=== PATIENT | female | born 1945 | race Caucasian/White ===

== ENCOUNTER → 2018-08-22 | Outpatient (CLI) | payer MEDICARE ==
--- NOTE | 2018-08-22 12:51 | REP ---
Chest two views HISTORY: Shortness of breath Comparison: None Patchy density is present in the left lower lobe consistent with atelectasis or infiltrate. Small bilateral pleural effusions are present. The heart is normal in size. Calcified lymph nodes are present in the mediastinum. The pulmonary vasculature is normal in appearance. The bony structure is intact. The patient is status post gastric pull through procedure. IMPRESSION: 1. Left lower lobe atelectasis or infiltrate. 2. Small bilateral pleural effusions. Electronically Signed by Julio Friend MD 08/22/2018 12:43 P
== END ==
LOC: M SMT 11:40
PROVIDERS: ATTEND Internal Medicine Cardiovascular Disease
DX: R91.8 Other nonspecific abnormal finding of lung field (principal); R06.02 Shortness of breath; I50.9 Heart failure, unspecified; J90 Pleural effusion, not elsewhere classified

== ENCOUNTER 2019-06-20 13:10 | Inpatient (IN) | payer MEDICARE, OTHER ==
[~2019-06-20] VITALS: Ht 157.5 cm; Wt 59.9 kg
[2019-06-20] MEDS ORDERED: methylPREDNISolone INJ 125 MG/2 ML VIAL (J2930) IV ONE (13:45)
--- NOTE | 2019-06-20 13:47 | REP ---
Single view chest: 06/20/2019. Indication: Dyspnea. Comparison: 08/22/2018. Findings: Slightly increased opacity within the right lower lobe is noted. Diminished left lower lobe opacities are noted. There is blunting of the costophrenic angles bilaterally. There is no pneumothorax. Calcified lymph nodes, sequelae of gastric pull-through including medial right lower lobe/mediastinal density and additional chronic interstitial findings are unchanged. Impression: Small right lower lobe pneumonia is not excluded. Bilateral pleural effusions. Electronically Signed by Boris Pardo DO 06/20/2019 01:39 P
[2019-06-20 14:00] LABS: VENOUS BASE EXCESS 0.1 (-2.0-2.0); VENOUS HCO3 25.4 MEQ/L (23.0-27.0); VENOUS PARTIAL PRESSURE CO2 44.3 mmHg (38.0-50.0); VENOUS PARTIAL PRESSURE O2 33.3 mmHg (30.0-50.0); VENOUS PH 7.377 UNITS (7.330-7.430); VENOUS STANDARD HCO3 23.8 MEQ/L; VENOUS TOTAL CO2 26.8 MEQ/L (24.0-28.0)
[2019-06-20 14:05] LABS: BASO % 0.2 % (0.0-1.0); EOS # 0.1 10^3/uL (0.0-0.5); EOS % 0.9 % (0.0-3.0); HEMATOCRIT 35.8 % (36.0-47.0); HEMOGLOBIN 11.5 g/dl (12.0-15.5); LYMPH # 0.5 10^3/uL (1.5-5.0); LYMPH % 5.6 % (24.0-44.0); MEAN CORPUSCULAR HEMOGLOBIN 31.9 pg (27.0-33.0); MEAN CORPUSCULAR HGB CONC 32.1 g/dl (32.0-36.5); MEAN CORPUSCULAR VOLUME 99.4 fl (80.0-96.0); MONO # 0.8 10^3/uL (0.0-0.8); MONO % 9.3 % (0.0-5.0); NEUTROPHILS # 7.5 10^3/uL (1.5-8.5); NEUTROPHILS % 83.1 % (36.0-66.0); PLATELET COUNT, AUTOMATED 249 10^3/uL (150-450); WHITE BLOOD COUNT 9.1 10^3/uL (4.0-10.0)
[2019-06-20] MEDS ORDERED: PROAAER10 INH (14:15)
[2019-06-20] MEDS ORDERED: B COTAB3 PO (14:15)
[2019-06-20] MEDS ORDERED: OPSU1TAB PO (14:15)
[2019-06-20] MEDS ORDERED: B-122500 PO (14:15)
[2019-06-20] MEDS ORDERED: TREL1AER INH (14:15)
[2019-06-20] MEDS ORDERED: IRON15CH PO (14:15)
[2019-06-20] MEDS ORDERED: D3 U5000 PO (14:15)
[2019-06-20] MEDS ORDERED: FURO20TA2 PO (14:15)
[2019-06-20] MEDS ORDERED: SPIR-10 PO (14:15)
[2019-06-20] MEDS ORDERED: GNP8.6TA PO (14:15)
[2019-06-20] MEDS ORDERED: LEVO75TA4 PO (14:15)
[2019-06-20] MEDS ORDERED: ELIQ5TAB PO (14:15)
[2019-06-20] MEDS ORDERED: PANT40TA3 PO (14:15)
[2019-06-20 14:25] LABS: INR 1.68; PROTHROMBIN TIME 19.5 SECONDS (11.8-14.0)
[2019-06-20 14:38] LABS: ALBUMIN 3.1 GM/DL (3.2-5.2); BILIRUBIN,DIRECT 0.1 MG/DL (0.0-0.2); BILIRUBIN,TOTAL 0.5 MG/DL (0.2-1.0); CALCIUM LEVEL 9.5 MG/DL (8.8-10.2); CK-MB VALUE MASS 5.3 NG/ML (<3.6); CREATININE FOR GFR 1.79 MG/DL (0.55-1.30); GLOMERULAR FILTRATION RATE 29.4 (>39); MB/CK RELATIVE INDEX 3.01 (< OR =4); POTASSIUM SERUM 3.7 MEQ/L (3.5-5.1); THYROID STIMULATING HORMONE 4.72 uIU/ML (0.358-3.740); TOTAL PROTEIN 6.7 GM/DL (6.4-8.2); TROPONIN I 0.03 NG/ML (< 0.10)
[2019-06-20] MEDS ORDERED: LevoFLOXacin IV 750 MG in IV 1 EA IV ONE (14:45)
[2019-06-20] MEDS ORDERED: IRON65TA2 PO (15:39)
[2019-06-20] MEDS ORDERED: ALBU83IN INH (15:42)
[2019-06-20] MEDS ORDERED: IPRA3SP NARES (15:42)
[2019-06-20] MEDS ORDERED: METO10TA2 PO (15:42)
[2019-06-20] MEDS ORDERED: AMOX500C PO (15:42)
[2019-06-20] MEDS ORDERED: AZITHROMYCIN INJ 500 MG, VIAL MATE ADAPTER 1 EACH in D5W 250 ML IV ONE (16:45)
[2019-06-20] MEDS ORDERED: cefTRIAXone SOD 1 GM in D5W MINI-BAG PLUS 50 ML IV SCH (17:00)
[2019-06-20] MEDS ORDERED: AZITHROMYCIN INJ 500 MG, VIAL MATE ADAPTER 1 EACH in D5W 250 ML IV SCH (17:00)
--- NOTE | 2019-06-20 17:31 | REPVR ---
PROCEDURE INFORMATION: Exam: CT Chest Without Contrast Exam date and time: 06/20/2019 5:02 PM Age: 74 years old Clinical history: Cough and shortness of breath; Additional info: SOB, cough, ? pna TECHNIQUE: Imaging protocol: Computed tomography of the chest without contrast. 3D rendering: MIP reconstructed images were created and reviewed. Radiation optimization: All CT scans at this facility use at least one of these dose optimization techniques: automated exposure control; mA and/or kV adjustment per patient size (includes targeted exams where dose is matched to clinical indication); or iterative reconstruction. COMPARISON: CR PORTABLE CHEST X-RAY 06/20/2019 1:24 PM FINDINGS: Lungs: Probable centrilobular emphysema with pulmonary hyperinflation. Pleural space: There is a moderate right pleural effusion with adjacent presumed compressive atelectasis in the right lower lobe. The right lower lobe is also compressed by the gastric pull-through. There is probable loculated fluid in the right major fissure. There is also a moderate left pleural effusion. Heart: No cardiomegaly or significant pericardial effusion. Mediastinum: There appears to be a gastric pull-through/samira-esophagus with surgical clips in the upper abdomen and posterior mediastinum. Aorta: There is no aneurysmal dilatation of thoracic aorta. Atherosclerotic calcification is apparent. Lymph nodes: Calcified lymph nodes are seen in the mediastinum and left hilum which may be due to old granulomatous disease. Liver: Several hepatic calcifications are likely due to old granulomatous disease. Spleen: Multiple splenic calcifications likely due to old granulomatous disease. Adrenals: The left adrenal gland is prominent. Bones/joints: Skeletal degeneration. Soft tissues: Unremarkable. IMPRESSION: 1. There are moderate bilateral pleural effusions which may be due to congestive heart failure. 2. There is probable compressive atelectasis in both lower lobes however further pathology is not excluded since they're not well assessed. 3. Presumed gastric pull through which is not well assessed on this noncontrast examination. 4. Probable granulomatous disease. 5. Probable centrilobular emphysema. Electronically signed by: Kaylin Clancy On 06/20/2019 17:31:02 PM
[2019-06-20] MEDS: METOCLOPRAMIDE 10 MG TAB PO SCH ×2 (17:33→22:17)
[2019-06-20] MEDS: FUROSEMIDE 40 MG/4 ML VIAL (J1940) IV SCH (17:34)
[2019-06-20] MEDS ORDERED: PIPERACILLIN/TAZOBACTAM SOD 3.375 GM in D5W MINI-BAG PLUS 50 ML IV SCH (17:45)
--- NOTE | 2019-06-20 18:05 | HPEPDOC ---
[facility] Medical History & Physical Date of Admission Jun 20, 2019 Date of Service: Jun 20, 2019 Attending Physician: DIOR WALL MD History and Physical CHIEF COMPLAINT: Shortness of breath and cough HISTORY OF PRESENT ILLNESS: 74-year-old female with past medical history of atrial fibrillation (on Eliquis), pulmonary hypertension, oxygen dependent, hypothyroidism, esophageal cancer status post chemoradiation and surgical resection in 2004, presents with worsening shortness of breath and cough. Her symptoms started a few days ago with worsening dyspnea, followed by cough initially productive of sputum, couple of episodes of diarrhea. She denies any sick contacts, reports decreasing her Lasix dose over the past few days based on her physician's recommendations, noted a 1 pound weight gain over the past 24 hours. Otherwise, she has no complaints at this time, denies any chest pain, sandi sea, vomiting or abdominal pain. In the ED she was found to have questionable right lower lobe pneumonia, follow-up CT showing bilateral pleural effusions. 10 point review of system is negative except for above PAST MEDICAL HISTORY: 1. Atrial fibrillation. 2. Pulmonary Hypertension. 3. Hypothyroidism. 4. Esophageal cancer. PAST SURGICAL HISTORY: 1. Cholecystectomy. 2. Esophageal resection. SOCIAL HISTORY: Previous smoker, 2 packs per day for 40 years, quit many years ago Denies drug and alcohol this time. Denies drug use FAMILY HISTORY: Mother with heart disease ALLERGIES: Please see below. HOME MEDICATIONS: Please see below. PHYSICAL EXAMINATION: VITAL SIGNS: Please see below. GENERAL: No distress HEENT: Normocephalic, atraumatic, moist mucous membranes NECK: Supple CARDIOVASCULAR EXAMINATION: S1, S2, no murmurs RESPIRATORY EXAMINATION: Diminished in the bases bilaterally, scattered rhonchi appreciated, no wheezing ABDOMINAL EXAMINATION: Soft, nontender, nondistended, positive bowel sounds EXTREMITIES: Range of motion intact SKIN: No rash NEUROLOGICAL EXAMINATION: Alert and oriented 3, no focal deficits PSYCHIATRIC EXAMINATION: Calm and cooperative LABORATORY DATA: See below. IMAGING: CT with bilateral pleural effusions MICROBIOLOGY: Please see below. ASSESSMENT: 74-year-old female with past medical history of pulmonary hypertension, CHF, atrial fibrillation, esophageal cancer status post chemoradiation and surgery, presents with worsening dyspnea and cough suggestive of CHF exacerbation. PLAN: 1. Acute on chronic CHF exacerbation. Recently decreased her outpatient Lasix dose, clinically volume overloaded, CT with bilateral pleural effusions, Lasix 40 mg IV twice a day. TTE pending. Monitor I's and O's, weight daily 2. Right lower lobe infiltrate. Possible right lower lobe infiltrate, given stomach pull-through in to the thoracic cavity, concern for aspiration, empiric Zosyn. Respiratory viral panel negative, pro-calcitonin pending, blood cultures pending. 3. Elevated creatinine. No recent creatinine for comparison, a small acute kidney injury versus chronic kidney disease, questionable cardiorenal syndrome, will diurese and monitor renal function. 4. Atrial fibrillation. Continue liquids, decrease dose to 2.5 mg twice a day given patient's weight and creatinine greater than 1.5. 5. Pulmonary hypertension. Supportive care, supplemental oxygen as needed to maintain O2 sats of 90%, TTE pending, diuresing. 6. Hypothyroidism. Continue levothyroxine 7. Esophageal cancer. Diagnosed in 2004, status post chemotherapy therapy, radiation and surgical resection with stomach pull-through to the thoracic cavity. DVT prophylaxis: On Eliquis GI prophylaxis: Home Protonix Vital Signs Vital Signs Date Time Temp Pulse Resp B/P (MAP) Pulse Ox O2 Delivery O2 Flow Rate FiO2 06/20/19 17:25 96 22 87 Nasal Cannula 4.0 06/20/19 17:09 168/71 (103) 06/20/19 13:11 98.0 Laboratory Data Labs 24H Laboratory Tests 2 06/20/19 13:38: Immature Granulocyte % (Auto) 0.9, Neutrophils (%) (Auto) 83.1H, Lymphocytes (%) (Auto) 5.6L, Monocytes (%) (Auto) 9.3H, Eosinophils (%) (Auto) 0.9, Basophils (%) (Auto) 0.2, Neutrophils # (Auto) 7.5, Lymphocytes # (Auto) 0.5L, Monocytes # (Auto) 0.8, Eosinophils # (Auto) 0.1, Basophils # (Auto) 0.0, Nucleated Red Blood Cells % (auto) 0.0, Prothrombin Time 19.5H, Prothromb Time International Ratio 1.68, Blood Gas Bicarbonate Standard 23.8, Venous Blood pH 7.377, Venous Blood Partial Pressure CO2 44.3, Venous Blood Partial Pressure O2 33.3, Venous Blood Total Carbon Dioxide 26.8, Venous Blood HCO3 25.4, Venous Blood Oxygen Saturation 59.0L, Venous Blood Base Excess 0.1, Anion Gap 11, Glomerular Filtration Rate 29.4L, Lactic Acid Level 1.9, Calcium Level 9.5, Total Bilirubin 0.5, Direct Bilirubin 0.1, Aspartate Amino Transf (AST/SGOT) 32, Alanine Aminotransferase (ALT/SGPT) 37, Alkaline Phosphatase 68, Total Creatine Kinase 176, Creatine Kinase MB 5.3H, Creatine Kinase MB Relative Index 3.01, Troponin I 0.03, TT-Gis-L-Type Natriuretic Peptide 29028E, Total Protein 6.7, Albumin 3.1L, Albumin/Globulin Ratio 0.86L, Thyroid Stimulating Hormone (TSH) 4.720H CBC/BMP Laboratory Tests 06/20/19 13:38 Microbiology Microbiology 06/20/19 Respiratory Virus Panel (PCR) ([facility]) - Final, Complete 06/20/19 Blood Culture, Received Pending 06/20/19 Blood Culture, Received Pending Home Medications Scheduled Amoxicillin (Amoxicillin) 500 Mg Capsule, 500 MG PO TID FOR 10 DAYS, STARTED 06/18 FOR TOOTH ABCESS Apixaban (Eliquis) 5 Mg Tablet, 5 MG PO BID Cholecalciferol (Vitamin D3) (Vitamin D3) 5,000 Unit Capsule, 5,000 UNIT PO DAILY Cyanocobalamin (Vitamin B-12) (Vitamin B12) 2,500 Mcg Tablet, 1,000 TAB PO DAILY Ferrous Sulfate (Iron) 325 Mg Tablet, 325 MG PO QWEEK MONDAYS Fluticasone/Umeclidin/Vilanter (Trelegy Ellipta 100-62.5-25) 1 Each Blst.w.dev, 1 PUFF INH DAILY Furosemide (Furosemide) 20 Mg Tablet, 60 MG PO DAILY Ipratropium Blount (Ipratropium Blount) 30 Ml [place], 2 SPRAY NARES BID Levothyroxine Sodium (Levothyroxine Sodium) 75 Mcg Tablet, 75 MCG PO DAILY Macitentan (Opsumit) 10 Mg Tablet, 10 MG PO DAILY Metoclopramide HCl (Metoclopramide HCl) 10 Mg Tablet, 10 MG PO TID Pantoprazole Sodium (Pantoprazole Sodium) 40 Mg Tablet.dr, 40 MG PO DAILY Sennosides (Senna Lax) 8.6 Mg Tablet, 2 TAB PO QHS Spironolactone (Spironolactone) 25 Mg Tablet, 25 MG PO DAILY Vitamin B Complex (Vitamin B Complex) 1 Each Tablet, 1 TAB PO DAILY Scheduled PRN Albuterol Sulf (Albuterol Sulfate) 2.5 Mg/3 Ml Vial.neb, 2.5 MG INH TID PRN for SHORTNESS OF BREATH Albuterol Sulfate (Proair Hfa) 8.5 Gm Hfa.aer.ad, 2 PUFF INH Q4H PRN for SOB/WHEEZING Allergies Coded Allergies: No Known Allergies (Unverified , 06/20/19) A-FIB/CHADSVASC A-FIB History Current/History of A-Fib/PAF?: Yes Current PO Anticoag Therapy: Yes DIOR WALL MD Jun 20, 2019 18:05
[2019-06-20] MEDS ORDERED: PIPERACILLIN/TAZOBACTAM SOD 3.375 GM in D5W MINI-BAG PLUS 50 ML IV ONE (18:15)
[2019-06-20] MEDS ORDERED: APIXABAN 5 MG TAB (ELIQUIS) PO SCH (21:00)
[2019-06-20] MEDS: IPRATROPIUM 0.03% NASAL SPRAY 30 ML (ATROVENT) SCH (21:00)
[2019-06-20 21:10] VITALS: BP 99/58
[2019-06-20] MEDS: SENNA 8.6 MG TAB (SENOKOT) PO SCH (22:17)
[2019-06-20] MEDS: APIXABAN 2.5 MG TAB (ELIQUIS) PO SCH (22:17)
[2019-06-20] MEDS: PIPERACILLIN/TAZOBACTAM SOD 2.25 GM in D5W MINI-BAG PLUS 50 ML IV SCH (23:26)
[2019-06-21] MEDS: PIPERACILLIN/TAZOBACTAM SOD 2.25 GM in D5W MINI-BAG PLUS 50 ML IV SCH ×4 (04:28→22:19)
[2019-06-21] MEDS: LEVOTHYROXINE 75MCG TABLET (0.075MG) PO SCH (05:51)
[2019-06-21 06:00] VITALS: BP 95/61
[2019-06-21 06:32] LABS: HEMATOCRIT 31.5 % (36.0-47.0); HEMOGLOBIN 10.3 g/dl (12.0-15.5); MEAN CORPUSCULAR HEMOGLOBIN 31.6 pg (27.0-33.0); MEAN CORPUSCULAR HGB CONC 32.7 g/dl (32.0-36.5); MEAN CORPUSCULAR VOLUME 96.6 fl (80.0-96.0); PLATELET COUNT, AUTOMATED 246 10^3/uL (150-450); RED BLOOD COUNT 3.26 10^6/uL (4.00-5.40); WHITE BLOOD COUNT 6.6 10^3/uL (4.0-10.0)
[2019-06-21 06:54] LABS: ALBUMIN 2.7 GM/DL (3.2-5.2); BILIRUBIN,TOTAL 0.4 MG/DL (0.2-1.0); CALCIUM LEVEL 8.7 MG/DL (8.8-10.2); CREATININE FOR GFR 1.77 MG/DL (0.55-1.30); GLOMERULAR FILTRATION RATE 29.8 (>39); MAGNESIUM LEVEL 1.9 MG/DL (1.8-2.4); TOTAL PROTEIN 6.5 GM/DL (6.4-8.2)
[2019-06-21] MEDS: ALBUTEROL SULFATE 2.5 MG/0.5 ML INH NEB SOLN INH PRN ×2 (07:11→14:46)
[2019-06-21 07:12] VITALS: O2SAT 95
[2019-06-21] MEDS: METOCLOPRAMIDE 10 MG TAB PO SCH ×3 (08:27→22:18)
[2019-06-21] MEDS: PANTOPRAZOLE 40MG TAB (PROTONIX) PO SCH (08:27)
[2019-06-21] MEDS: CYANOCOBALAMIN 500 MCG TAB PO SCH (08:27)
[2019-06-21] MEDS: APIXABAN 2.5 MG TAB (ELIQUIS) PO SCH ×2 (08:28→22:18)
[2019-06-21] MEDS: SPIRONOLACTONE 25 MG TAB PO SCH (08:28)
[2019-06-21] MEDS: IPRATROPIUM 0.03% NASAL SPRAY 30 ML (ATROVENT) SCH ×2 (08:28→22:18)
[2019-06-21] MEDS: FUROSEMIDE 40 MG/4 ML VIAL (J1940) IV SCH ×2 (09:00→17:08)
--- NOTE | 2019-06-21 10:57 | REP ---
RENAL ULTRASOUND: Real-time sonographic evaluation of the kidneys performed. Kidneys are normal in size and echotexture, right kidney measuring 9.8 x 4.6 x 3.6 cm and the left kidney 9.3 x 5.3 x 4.1 cm. There is no hydronephrosis bilaterally. No renal mass is seen. Ureteral jets are not seen in the urinary bladder with Doppler color evaluation. There is right pleural fluid incidentally noted. IMPRESSION: Essentially negative renal ultrasound with no hydronephrosis. Electronically Signed by Randall Awan MD 06/21/2019 11:47 A
[2019-06-21] MEDS: OPSUMIT 10 MG PO SCH (11:11)
[2019-06-21] MEDS: TRELEGY ELLIPTA INH SCH (11:19)
[2019-06-21 14:00] VITALS: BP 98/58
--- NOTE | 2019-06-21 14:59 | ECGEPIP ---
[facility] - ED Test Date: 2019-06-20 Pat Name: PRASANNA BHATTI Department: Room: - Gender: Female [employer] Forms: SAIDA : 1945 Requested By: Nguyen Soliz Order Number: [id number] Reading MD: Javid Atwood Measurements Intervals [place] Rate: 99 P: 80 NC: 209 QRS: 96 QRSD: 92 T: 29 QT: 346 QTc: 444 Interpretive Statements SINUS RHYTHM LEFT ATRIAL ENLARGEMENT BORDERLINE RIGHT AXIS DEVIATION INCOMPLETE RIGHT BUNDLE BRANCH BLOCK NO PRIORS FOR COMPARISON Electronically Signed on 06-21-2019 14:59:29 EST by Javid Atwood
--- NOTE | 2019-06-21 17:37 | IPNPDOC ---
Date Seen The patient was seen on 06/21/19. Progress Note HISTORY OF PRESENT ILLNESS: 74-year-old female with past medical history of atrial fibrillation (on Eliquis), pulmonary hypertension, oxygen dependent, hypothyroidism, esophageal cancer status post chemoradiation and surgical resection in 2004, presents with worsening shortness of breath and cough. Her symptoms started a few days ago with worsening dyspnea, followed by cough initially productive of sputum, couple of episodes of diarrhea. She denies any sick contacts, reports decreasing her Lasix dose over the past few days based on her physician's recommendations, noted a 1 pound weight gain over the past 24 hours. Otherwise, she has no complaints at this time, denies any chest pain, na usea, vomiting or abdominal pain. In the ED she was found to have questionable right lower lobe pneumonia, follow-up CT showing bilateral pleural effusions. 06/21/2019 Patient without any complaints in the morning, no issues overnight. She reports no changes to her health from yesterday, continues to have cough and mild dyspnea, remains on nasal cannula at 4 L at this time. 10 point review of system is negative except for above ALLERGIES: Please see below. HOME MEDICATIONS: Please see below. PHYSICAL EXAMINATION: VITAL SIGNS: Please see below. GENERAL: No distress HEENT: Normocephalic, atraumatic, moist mucous membranes NECK: Supple CARDIOVASCULAR EXAMINATION: S1, S2, no murmurs RESPIRATORY EXAMINATION: Diminished in the bases bilaterally, scattered rhonchi appreciated, no wheezing ABDOMINAL EXAMINATION: Soft, nontender, nondistended, positive bowel sounds EXTREMITIES: Range of motion intact SKIN: No rash NEUROLOGICAL EXAMINATION: Alert and oriented 3, no focal deficits PSYCHIATRIC EXAMINATION: Calm and cooperative LABORATORY DATA: See below. IMAGING: CT with bilateral pleural effusions MICROBIOLOGY: Please see below. ASSESSMENT: 74-year-old female with past medical history of pulmonary hypertension, CHF, atrial fibrillation, esophageal cancer status post chemoradiation and surgery, presents with worsening dyspnea and cough suggestive of CHF exacerbation. PLAN: 1. Acute on chronic CHF exacerbation. CT with bilateral pleural effusions, Lasix 40 mg IV twice a day. TTE pending. Monitor I's and O's, weight daily 2. Right lower lobe infiltrate. Possible right lower lobe infiltrate, given stomach pull-through in to the thoracic cavity, concern for aspiration, empiric Zosyn. Respiratory viral panel negative, blood cultures pending, swallow eval pending . Pro-calcitonin not significantly elevated. 3. Elevated creatinine. No recent creatinine for comparison, possible cardiorenal syndrome, renal ultrasound without hydronephrosis, will monitor with further diuresis. 4. Atrial fibrillation. Continue liquids, decrease dose to 2.5 mg twice a day given patient's weight and creatinine greater than 1.5. 5. Pulmonary hypertension. Continue home Opsumit 6. Hypothyroidism. Continue levothyroxine 7. Esophageal cancer. Diagnosed in 2004, status post chemotherapy therapy, radiation and surgical resection with stomach pull-through to the thoracic cavity. DVT prophylaxis: On Eliquis GI prophylaxis: Home Protonix VS, I&O, 24H, Fishbone Vital Signs/I&O Vital Signs Date Time Temp Pulse Resp B/P (MAP) Pulse Ox O2 Delivery O2 Flow Rate FiO2 06/21/19 14:47 92 06/21/19 14:00 98.6 18 98/58 (71) 92 High Flow Cannula 3.0 06/20/19 21:10 31 I&O- Last 24 Hours up to 6 AM 06/21/19 05:59 Intake Total 555 ml Output Total 400 ml Balance 155 ml Laboratory Data 24H LABS Laboratory Tests 2 06/21/19 06:13: Nucleated Red Blood Cells % (auto) 0.0, Anion Gap 9, Glomerular Filtration Rate 29.8L, Calcium Level 8.7L, Magnesium Level 1.9, Total Bilirubin 0.4, Aspartate Amino Transf (AST/SGOT) 24, Alanine Aminotransferase (ALT/SGPT) 31, Alkaline Phosphatase 54, Total Protein 6.5, Albumin 2.7L, Albumin/Globulin Ratio 0.71L CBC/BMP Laboratory Tests 06/21/19 06:13 Microbiology Microbiology 06/20/19 Gram Stain - Final, Resulted 06/20/19 Sputum Culture, Resulted Pending 06/20/19 Respiratory Virus Panel (PCR) ([facility]) - Final, Complete 06/20/19 Blood Culture - Preliminary, Resulted No growth after 24 hours . All specim... 06/20/19 Blood Culture - Preliminary, Resulted No growth after 24 hours . All specim... DIOR WALL MD Jun 21, 2019 17:37
[2019-06-21 22:00] VITALS: BP 97/56
[2019-06-21] MEDS: SENNA 8.6 MG TAB (SENOKOT) PO SCH (22:18)
[2019-06-22] MEDS: PIPERACILLIN/TAZOBACTAM SOD 2.25 GM in D5W MINI-BAG PLUS 50 ML IV SCH ×4 (05:22→22:30)
[2019-06-22] MEDS: LEVOTHYROXINE 75MCG TABLET (0.075MG) PO SCH (05:22)
[2019-06-22 06:00] VITALS: BP 96/57
[2019-06-22 06:17] LABS: HEMATOCRIT 30.3 % (36.0-47.0); HEMOGLOBIN 9.7 g/dl (12.0-15.5); MEAN CORPUSCULAR HEMOGLOBIN 31.7 pg (27.0-33.0); PLATELET COUNT, AUTOMATED 254 10^3/uL (150-450); RED BLOOD COUNT 3.06 10^6/uL (4.00-5.40); WHITE BLOOD COUNT 7.6 10^3/uL (4.0-10.0)
[2019-06-22 06:37] LABS: CALCIUM LEVEL 8.7 MG/DL (8.8-10.2); CREATININE FOR GFR 1.69 MG/DL (0.55-1.30); GLOMERULAR FILTRATION RATE 31.4 (>39); MAGNESIUM LEVEL 1.9 MG/DL (1.8-2.4); POTASSIUM SERUM 3.6 MEQ/L (3.5-5.1)
[2019-06-22] MEDS: FUROSEMIDE 40 MG/4 ML VIAL (J1940) IV SCH ×2 (08:02→16:59)
[2019-06-22] MEDS: SPIRONOLACTONE 25 MG TAB PO SCH (08:02)
[2019-06-22] MEDS: METOCLOPRAMIDE 10 MG TAB PO SCH ×3 (08:02→20:52)
[2019-06-22] MEDS: APIXABAN 2.5 MG TAB (ELIQUIS) PO SCH ×2 (08:02→20:52)
[2019-06-22] MEDS: CYANOCOBALAMIN 500 MCG TAB PO SCH (08:02)
[2019-06-22] MEDS: OPSUMIT 10 MG PO SCH (08:03)
[2019-06-22] MEDS: PANTOPRAZOLE 40MG TAB (PROTONIX) PO SCH (08:03)
[2019-06-22] MEDS: TRELEGY ELLIPTA INH SCH (08:09)
[2019-06-22] MEDS: ALBUTEROL SULFATE 2.5 MG/0.5 ML INH NEB SOLN INH PRN ×2 (08:09→22:06)
[2019-06-22] MEDS: IPRATROPIUM 0.03% NASAL SPRAY 30 ML (ATROVENT) SCH ×2 (08:12→21:51)
--- NOTE | 2019-06-22 08:48 | ECHO ---
DATE OF STUDY: 06/21/2019 REFERRING PHYSICIAN: Elsy Alexander MD INDICATION: Congestive heart failure. HEIGHT: 158 cm. WEIGHT: 58 kg. DIMENSIONS: IVS 0.8 LV 3.6 LVPW 0.9 LA 2.7 Aorta 2.4 IVC 1.9 Mitral E wave velocity 100, A wave 82. E prime septal 12.9 E prime lateral 9.8 FINDINGS: The study is of good technical quality. The patient is in sinus rhythm. Left ventricle is normal size and systolic function with estimated LVEF 60-65%. No segmental wall motion abnormalities are appreciated. Right ventricle appears at least mildly dilated but normally contractile. The left atrium is normal size. Right atrium is probably mildly enlarged. Aortic valve is sclerotic, but it has three cusps and relatively preserved mobility. Mitral and tricuspid valves appear normal. Pulmonic valve was not well seen. No pericardial effusion is noted. Left pleural effusion is seen. Inferior vena cava is within normal limits for its size and collapses with respiration. Aortic root is normal. Aortic arch and abdominal aorta were not well seen. Doppler interrogation reveals no aortic insufficiency and mild stenosis with mean gradient 12 mmHg. There is also mild mitral and tricuspid insufficiency. Calculated pulmonary artery pressure is in the low 50s corresponding to moderate pulmonary hypertension. Mitral inflow pattern and tissue Doppler imaging of mitral annulus reveal normal diastolic function. CONCLUSIONS: 1. Study is of acceptable technical quality. 2. Normal LV size, systolic and diastolic function. 3. Mildly dilated right ventricle with at least moderate pulmonary hypertension. 4. Mild aortic stenosis. 5. Mild mitral and tricuspid insufficiency. COMMENTS: Subacute bacterial endocarditis (SBE) prophylaxis is not recommended. The study does not answer the question whether the pulmonary hypertension is due to left-sided heart failure but it seems less likely.
[2019-06-22] MEDS ORDERED: POTASSIUM CHLORIDE 10 MEQ SR TABLET PO ONE (10:00)
[2019-06-22 14:00] VITALS: BP 94/57
--- NOTE | 2019-06-22 18:43 | IPNPDOC ---
Date Seen The patient was seen on 06/22/19. Progress Note HISTORY OF PRESENT ILLNESS: 74-year-old female with past medical history of atrial fibrillation (on Eliquis), pulmonary hypertension, oxygen dependent, hypothyroidism, esophageal cancer status post chemoradiation and surgical resection in 2004, presents with worsening shortness of breath and cough. Her symptoms started a few days ago with worsening dyspnea, followed by cough initially productive of sputum, couple of episodes of diarrhea. She denies any sick contacts, reports decreasing her Lasix dose over the past few days based on her physician's recommendations, noted a 1 pound weight gain over the past 24 hours. Otherwise, she has no complaints at this time, denies any chest pain, na usea, vomiting or abdominal pain. In the ED she was found to have questionable right lower lobe pneumonia, follow-up CT showing bilateral pleural effusions. 06/21/2019 Patient without any complaints in the morning, no issues overnight. She reports no changes to her health from yesterday, continues to have cough and mild dyspnea, remains on nasal cannula at 4 L at this time. 06/22/2019 Patient reports improvement in dyspnea and cough, no other complaints at this time, requiring less oxygen via nasal cannula today, down to 3 L. 10 point review of system is negative except for above ALLERGIES: Please see below. HOME MEDICATIONS: Please see below. PHYSICAL EXAMINATION: VITAL SIGNS: Please see below. GENERAL: No distress HEENT: Normocephalic, atraumatic, moist mucous membranes NECK: Supple CARDIOVASCULAR EXAMINATION: S1, S2, no murmurs RESPIRATORY EXAMINATION: Diminished in the bases bilaterally, scattered rhonchi appreciated, no wheezing ABDOMINAL EXAMINATION: Soft, nontender, nondistended, positive bowel sounds EXTREMITIES: Range of motion intact SKIN: No rash NEUROLOGICAL EXAMINATION: Alert and oriented 3, no focal deficits PSYCHIATRIC EXAMINATION: Calm and cooperative LABORATORY DATA: See below. IMAGING: CT with bilateral pleural effusions MICROBIOLOGY: Please see below. ASSESSMENT: 74-year-old female with past medical history of pulmonary hypertension, CHF, atrial fibrillation, esophageal cancer status post chemoradiation and surgery, presents with worsening dyspnea and cough suggestive of CHF exacerbation. PLAN: 1. Acute on chronic CHF exacerbation. CT with bilateral pleural effusions, continue Lasix 40 mg IV twice a day. TTE reviewed, moderately elevated right ventricular systolic pressure. Monitor I's and O's, weight daily 2. Right lower lobe infiltrate. Possible right lower lobe infiltrate, given stomach pull-through in to the thoracic cavity, concern for aspiration, empiric Zosyn. Respiratory viral panel negative, blood cultures pending, Pro-calcitonin not significantly elevated. 3. Elevated creatinine. No recent creatinine for comparison, possible cardiorenal syndrome, renal ultrasound without hydronephrosis, will monitor with further diuresis. 4. Atrial fibrillation. Continue liquids, decrease dose to 2.5 mg twice a day given patient's weight and creatinine greater than 1.5. 5. Pulmonary hypertension. Continue home Opsumit 6. Hypothyroidism. Continue levothyroxine 7. Esophageal cancer. Diagnosed in 2004, status post chemotherapy therapy, radiation and surgical resection with stomach pull-through to the thoracic cavity. DVT prophylaxis: On Eliquis GI prophylaxis: Home Protonix VS, I&O, 24H, Fishbone Vital Signs/I&O Vital Signs Date Time Temp Pulse Resp B/P (MAP) Pulse Ox O2 Delivery O2 Flow Rate FiO2 06/22/19 14:00 98.0 92 18 94/57 (69) 95 High Flow Cannula 3.0 06/20/19 21:10 31 I&O- Last 24 Hours up to 6 AM 06/22/19 06:00 Intake Total 1760 ml Output Total 200 ml Balance 1560 ml Laboratory Data 24H LABS Laboratory Tests 2 06/22/19 05:37: Nucleated Red Blood Cells % (auto) 0.0, Anion Gap 6L, Glomerular Filtration Rate 31.4L, Calcium Level 8.7L, Phosphorus Level 4.0, Magnesium Level 1.9 CBC/BMP Laboratory Tests 06/22/19 05:37 Microbiology Microbiology 06/20/19 Gram Stain - Final, Complete 06/20/19 Sputum Culture - Final, Complete Yeast Like Organism Mold Like Organism 06/20/19 Respiratory Virus Panel (PCR) ([facility]) - Final, Complete 06/20/19 Blood Culture - Preliminary, Resulted No Growth after 48 hours. All Specime... 06/20/19 Blood Culture - Preliminary, Resulted No Growth after 48 hours. All Specime... DIOR WALL MD Jun 22, 2019 18:43
[2019-06-22] MEDS: SENNA 8.6 MG TAB (SENOKOT) PO SCH (20:52)
[2019-06-22 22:00] VITALS: BP 95/57
[2019-06-23] MEDS ORDERED: CALCIUM CARBONATE 500 MG CHEW U/D PO ONE (03:15)
[2019-06-23] MEDS: PIPERACILLIN/TAZOBACTAM SOD 2.25 GM in D5W MINI-BAG PLUS 50 ML IV SCH (05:04)
[2019-06-23] MEDS: LEVOTHYROXINE 75MCG TABLET (0.075MG) PO SCH (05:46)
[2019-06-23 06:00] VITALS: BP 96/58
[2019-06-23 06:08] LABS: HEMATOCRIT 32.3 % (36.0-47.0); HEMOGLOBIN 10.2 g/dl (12.0-15.5); MEAN CORPUSCULAR HEMOGLOBIN 31.5 pg (27.0-33.0); MEAN CORPUSCULAR HGB CONC 31.6 g/dl (32.0-36.5); MEAN CORPUSCULAR VOLUME 99.7 fl (80.0-96.0); PLATELET COUNT, AUTOMATED 271 10^3/uL (150-450); RED BLOOD COUNT 3.24 10^6/uL (4.00-5.40); WHITE BLOOD COUNT 7.9 10^3/uL (4.0-10.0)
[2019-06-23 06:28] LABS: CALCIUM LEVEL 8.7 MG/DL (8.8-10.2); CREATININE FOR GFR 1.49 MG/DL (0.55-1.30); GLOMERULAR FILTRATION RATE 36.3 (>39); PHOSPHORUS LEVEL 3.1 MG/DL (2.5-4.9); POTASSIUM SERUM 3.8 MEQ/L (3.5-5.1)
[2019-06-23 08:34] VITALS: BP 94/58
[2019-06-23] MEDS: FUROSEMIDE 40 MG/4 ML VIAL (J1940) IV SCH ×2 (08:34→17:58)
[2019-06-23] MEDS: PANTOPRAZOLE 40MG TAB (PROTONIX) PO SCH (08:36)
[2019-06-23] MEDS: APIXABAN 2.5 MG TAB (ELIQUIS) PO SCH ×2 (08:36→21:12)
[2019-06-23] MEDS: METOCLOPRAMIDE 10 MG TAB PO SCH ×4 (08:36→21:12)
[2019-06-23] MEDS: SPIRONOLACTONE 25 MG TAB PO SCH (08:36)
[2019-06-23] MEDS: CYANOCOBALAMIN 500 MCG TAB PO SCH (08:36)
[2019-06-23] MEDS: OPSUMIT 10 MG PO SCH (08:37)
[2019-06-23] MEDS: IPRATROPIUM 0.03% NASAL SPRAY 30 ML (ATROVENT) SCH ×2 (08:37→21:12)
[2019-06-23] MEDS: TRELEGY ELLIPTA INH SCH (08:45)
--- NOTE | 2019-06-23 12:12 | IPNPDOC ---
Date Seen The patient was seen on 06/23/19. Progress Note HISTORY OF PRESENT ILLNESS: 74-year-old female with past medical history of atrial fibrillation (on Eliquis), pulmonary hypertension, oxygen dependent, hypothyroidism, esophageal cancer status post chemoradiation and surgical resection in 2004, presents with worsening shortness of breath and cough. Her symptoms started a few days ago with worsening dyspnea, followed by cough initially productive of sputum, couple of episodes of diarrhea. She denies any sick contacts, reports decreasing her Lasix dose over the past few days based on her physician's recommendations, noted a 1 pound weight gain over the past 24 hours. Otherwise, she has no complaints at this time, denies any chest pain, na usea, vomiting or abdominal pain. In the ED she was found to have questionable right lower lobe pneumonia, follow-up CT showing bilateral pleural effusions. 06/21/2019 Patient without any complaints in the morning, no issues overnight. She reports no changes to her health from yesterday, continues to have cough and mild dyspnea, remains on nasal cannula at 4 L at this time. 06/22/2019 Patient reports improvement in dyspnea and cough, no other complaints at this time, requiring less oxygen via nasal cannula today, down to 3 L. 06/23/2019 Patient without any complaints, reports having mild diarrhea now, reports improvement in shortness of breath and cough. 10 point review of system is negative except for above ALLERGIES: Please see below. HOME MEDICATIONS: Please see below. PHYSICAL EXAMINATION: VITAL SIGNS: Please see below. GENERAL: No distress HEENT: Normocephalic, atraumatic, moist mucous membranes NECK: Supple CARDIOVASCULAR EXAMINATION: S1, S2, no murmurs RESPIRATORY EXAMINATION: scattered rhonchi appreciated, no wheezing ABDOMINAL EXAMINATION: Soft, nontender, nondistended, positive bowel sounds EXTREMITIES: Range of motion intact SKIN: No rash NEUROLOGICAL EXAMINATION: Alert and oriented 3, no focal deficits PSYCHIATRIC EXAMINATION: Calm and cooperative LABORATORY DATA: See below. IMAGING: CT with bilateral pleural effusions MICROBIOLOGY: Please see below. ASSESSMENT: 74-year-old female with past medical history of pulmonary hypertension, CHF, atrial fibrillation, esophageal cancer status post chemoradiation and surgery, presents with worsening dyspnea and cough suggestive of CHF exacerbation. PLAN: 1. Acute on chronic CHF exacerbation. CT with bilateral pleural effusions, improving, continue Lasix 40 mg IV twice a day. TTE reviewed, moderately elevated right ventricular systolic pressure. Monitor I's and O's, weight daily 2. Right lower lobe infiltrate. Possible right lower lobe infiltrate, given stomach pull-through in to the thoracic cavity, concern for aspiration, continue Zosyn. Respiratory viral panel negative, blood cultures pending, Pro-calcitonin not significantly elevated. 3. Elevated creatinine. No recent creatinine for comparison, possible cardiorenal syndrome, renal ultrasound without hydronephrosis, renal function improving with diuresis. 4. Atrial fibrillation. Continue Eliquis 5. Pulmonary hypertension. Continue home Opsumit 6. Hypothyroidism. Continue levothyroxine 7. Esophageal cancer. Diagnosed in 2004, status post chemotherapy therapy, radiation and surgical resection with stomach pull-through to the thoracic cavity. DVT prophylaxis: On Eliquis GI prophylaxis: Home Protonix VS, I&O, 24H, Fishbone Vital Signs/I&O Vital Signs Date Time Temp Pulse Resp B/P (MAP) Pulse Ox O2 Delivery O2 Flow Rate FiO2 06/23/19 09:00 3.0 06/23/19 08:34 92 15 94/58 (70) 93 06/23/19 06:00 97.6 High Flow Cannula 06/20/19 21:10 31 I&O- Last 24 Hours up to 6 AM 06/23/19 05:59 Intake Total 880 ml Balance 880 ml Laboratory Data 24H LABS Laboratory Tests 2 06/23/19 05:34: Nucleated Red Blood Cells % (auto) 0.0, Anion Gap 4L, Glomerular Filtration Rate 36.3L, Calcium Level 8.7L, Phosphorus Level 3.1#, Magnesium Level 2.0 CBC/BMP Laboratory Tests 06/23/19 05:34 Microbiology Microbiology 06/20/19 Gram Stain - Final, Complete 06/20/19 Sputum Culture - Final, Complete Yeast Like Organism Mold Like Organism 06/20/19 Respiratory Virus Panel (PCR) ([facility]) - Final, Complete 06/20/19 Blood Culture - Preliminary, Resulted No Growth after 48 hours. All Specime... 06/20/19 Blood Culture - Preliminary, Resulted No Growth after 48 hours. All Specime... DIOR WALL MD Jun 23, 2019 12:12
[2019-06-23] MEDS: AcetaZOLAMIDE 250 MG TAB PO SCH ×2 (12:19→17:57)
[2019-06-23] MEDS: LevoFLOXacin 500 MG TABLET PO SCH (12:19)
[2019-06-23] MEDS: CALCIUM CARBONATE 500 MG CHEW U/D PO PRN (21:12)
[2019-06-23] MEDS: ALBUTEROL SULFATE 2.5 MG/0.5 ML INH NEB SOLN INH PRN (21:18)
[2019-06-23 22:00] VITALS: BP 94/56
[2019-06-24] MEDS: LevoFLOXacin 500 MG TABLET PO SCH (05:48)
[2019-06-24] MEDS: LEVOTHYROXINE 75MCG TABLET (0.075MG) PO SCH (05:48)
[2019-06-24 06:00] VITALS: BP 94/57
[2019-06-24] MEDS: METOCLOPRAMIDE 10 MG TAB PO SCH ×4 (07:29→20:25)
[2019-06-24] MEDS: ALBUTEROL SULFATE 2.5 MG/0.5 ML INH NEB SOLN INH PRN ×2 (09:25→21:33)
[2019-06-24] MEDS: TRELEGY ELLIPTA INH SCH (09:25)
[2019-06-24 09:44] VITALS: BP 98/57
[2019-06-24] MEDS: CYANOCOBALAMIN 500 MCG TAB PO SCH (09:45)
[2019-06-24] MEDS: SPIRONOLACTONE 25 MG TAB PO SCH (09:46)
[2019-06-24] MEDS: PANTOPRAZOLE 40MG TAB (PROTONIX) PO SCH (09:46)
[2019-06-24] MEDS: OPSUMIT 10 MG PO SCH (09:46)
[2019-06-24] MEDS: APIXABAN 2.5 MG TAB (ELIQUIS) PO SCH ×2 (09:47→20:25)
[2019-06-24] MEDS: IPRATROPIUM 0.03% NASAL SPRAY 30 ML (ATROVENT) SCH ×2 (09:47→20:25)
[2019-06-24] MEDS: FUROSEMIDE 40 MG/4 ML VIAL (J1940) IV SCH (09:49)
[2019-06-24 10:35] LABS: CLOSTRIDIUM DIFFICILE PCR NEGATIVE (NEGATIVE)
--- NOTE | 2019-06-24 11:06 | IPNPDOC ---
Date Seen The patient was seen on 06/24/19. Progress Note HISTORY OF PRESENT ILLNESS: 74-year-old female with past medical history of atrial fibrillation (on Eliquis), pulmonary hypertension, oxygen dependent, hypothyroidism, esophageal cancer status post chemoradiation and surgical resection in 2004, presents with worsening shortness of breath and cough. Her symptoms started a few days ago with worsening dyspnea, followed by cough initially productive of sputum, couple of episodes of diarrhea. She denies any sick contacts, reports decreasing her Lasix dose over the past few days based on her physician's recommendations, noted a 1 pound weight gain over the past 24 hours. Otherwise, she has no complaints at this time, denies any chest pain, nausea, vomiting or abdominal pain. In the ED she was found to have questionable right lower lobe pneumonia, follow-up CT showing bilateral pleural effusions. 06/21/2019 Patient without any complaints in the morning, no issues overnight. She reports no changes to her health from yesterday, continues to have cough and mild dyspnea, remains on nasal cannula at 4 L at this time. 06/22/2019 Patient reports improvement in dyspnea and cough, no other complaints at this time, requiring less oxygen via nasal cannula today, down to 3 L. 06/23/2019 Patient without any complaints, reports having mild diarrhea now, reports improvement in shortness of breath and cough. 06/24/2019 Patient reports improvement in dyspnea and cough, diarrhea improved, C. difficile negative, no other complaint at this time. 10 point review of system is negative except for above ALLERGIES: Please see below. HOME MEDICATIONS: Please see below. PHYSICAL EXAMINATION: VITAL SIGNS: Please see below. GENERAL: No distress HEENT: Normocephalic, atraumatic, moist mucous membranes NECK: Supple CARDIOVASCULAR EXAMINATION: S1, S2, no murmurs RESPIRATORY EXAMINATION: scattered rhonchi appreciated, diminished in the bases, no wheezing ABDOMINAL EXAMINATION: Soft, nontender, nondistended, positive bowel sounds EXTREMITIES: Range of motion intact SKIN: No rash NEUROLOGICAL EXAMINATION: Alert and oriented 3, no focal deficits PSYCHIATRIC EXAMINATION: Calm and cooperative LABORATORY DATA: See below. IMAGING: CT with bilateral pleural effusions MICROBIOLOGY: Please see below. ASSESSMENT: 74-year-old female with past medical history of pulmonary hypertension, CHF, atrial fibrillation, esophageal cancer status post chemoradiation and surgery, presents with worsening dyspnea and cough suggestive of CHF exacerbation. PLAN: 1. Acute on chronic CHF exacerbation. CT with bilateral pleural effusions, improving, discontinued IV Lasix, continue home dose oral Lasix. TTE reviewed, moderately elevated right ventricular systolic pressure. Monitor I's and O's, weight daily 2. Right lower lobe infiltrate. Possible right lower lobe pneumonia, given stomach pull-through in to the thoracic cavity, concern for aspiration, continue Zosyn. Respiratory viral panel negative, blood cultures negative, Pro-calcitonin not significantly elevated. 3. Elevated creatinine. No recent creatinine for comparison, possible cardiorenal syndrome, renal ultrasound without hydronephrosis, renal function improving with diuresis. 4. Atrial fibrillation. Continue Eliquis 5. Pulmonary hypertension. Continue home Opsumit 6. Hypothyroidism. Continue levothyroxine 7. Esophageal cancer. Diagnosed in 2004, status post chemotherapy therapy, radiation and surgical resection with stomach pull-through to the thoracic cavity. DVT prophylaxis: On Eliquis GI prophylaxis: Home Protonix VS, I&O, 24H, Fishbone Vital Signs/I&O Vital Signs Date Time Temp Pulse Resp B/P (MAP) Pulse Ox O2 Delivery O2 Flow Rate FiO2 06/24/19 09:44 98/57 (71) 06/24/19 06:00 97.6 101 15 91 Room Air 06/23/19 21:00 3.0 06/20/19 21:10 31 I&O- Last 24 Hours up to 6 AM 06/24/19 06:00 Intake Total 620 ml Output Total 400 ml Balance 220 ml Laboratory Data 24H LABS Laboratory Tests 2 06/24/19 09:32: Clostridium difficile [id number] PRESUMPTIVE NEGATIVE, Clostridium difficile Toxin (PCR) NEGATIVE Microbiology Microbiology 06/20/19 Gram Stain - Final, Complete 06/20/19 Sputum Culture - Final, Complete Yeast Like Organism Mold Like Organism 06/20/19 Respiratory Virus Panel (PCR) ([facility]) - Final, Complete 06/20/19 Blood Culture - Preliminary, Resulted No Growth after 72 hours. All specime... 06/20/19 Blood Culture - Preliminary, Resulted No Growth after 72 hours. All specime... DIOR WALL MD Jun 24, 2019 11:06
[2019-06-24 14:00] VITALS: BP 98/58
[2019-06-24] MEDS: CALCIUM CARBONATE 500 MG CHEW U/D PO PRN (20:26)
[2019-06-24 22:00] VITALS: BP 97/58
[2019-06-25 06:00] VITALS: BP 98/60
[2019-06-25] MEDS: LEVOTHYROXINE 75MCG TABLET (0.075MG) PO SCH (06:07)
[2019-06-25] MEDS: LevoFLOXacin 500 MG TABLET PO SCH (06:07)
[2019-06-25] MEDS: TRELEGY ELLIPTA INH SCH (08:03)
[2019-06-25] MEDS: ALBUTEROL SULFATE 2.5 MG/0.5 ML INH NEB SOLN INH PRN (08:03)
[2019-06-25 08:13] LABS: CALCIUM LEVEL 10.3 MG/DL (8.8-10.2); CREATININE FOR GFR 1.64 MG/DL (0.55-1.30); GLOMERULAR FILTRATION RATE 32.5 (>39); MAGNESIUM LEVEL 2.4 MG/DL (1.8-2.4); PHOSPHORUS LEVEL 4.6 MG/DL (2.5-4.9); POTASSIUM SERUM 3.7 MEQ/L (3.5-5.1)
[2019-06-25 08:23] LABS: HEMOGLOBIN 10.6 g/dl (12.0-15.5); MEAN CORPUSCULAR HEMOGLOBIN 30.5 pg (27.0-33.0); MEAN CORPUSCULAR HGB CONC 31.2 g/dl (32.0-36.5); PLATELET COUNT, AUTOMATED 327 10^3/uL (150-450); RED BLOOD COUNT 3.47 10^6/uL (4.00-5.40); WHITE BLOOD COUNT 9.3 10^3/uL (4.0-10.0)
[2019-06-25] MEDS ORDERED: FERROUS SULFATE 325MG TAB PO SCH (09:00)
[2019-06-25] MEDS ORDERED: FUROSEMIDE 20 MG TAB PO SCH (09:00)
[2019-06-25] MEDS: SPIRONOLACTONE 25 MG TAB PO SCH (09:32)
[2019-06-25] MEDS: APIXABAN 2.5 MG TAB (ELIQUIS) PO SCH (09:32)
[2019-06-25] MEDS: METOCLOPRAMIDE 10 MG TAB PO SCH ×2 (09:32→12:21)
[2019-06-25] MEDS: PANTOPRAZOLE 40MG TAB (PROTONIX) PO SCH (09:32)
[2019-06-25] MEDS: CYANOCOBALAMIN 500 MCG TAB PO SCH (09:33)
[2019-06-25] MEDS: OPSUMIT 10 MG PO SCH (12:10)
[2019-06-25] MEDS: IPRATROPIUM 0.03% NASAL SPRAY 30 ML (ATROVENT) SCH (12:11)
--- NOTE | 2019-06-25 12:16 | DS.PDOC ---
Discharge Summary General Date of Admission Jun 20, 2019 at 16:31 Date of Discharge 06/25/2019 Attending Physician: DIOR WALL MD Discharge Summary PROCEDURES PERFORMED DURING STAY: None. ADMITTING DIAGNOSES: 1. Pneumonia, CHF exacerbation. DISCHARGE DIAGNOSES: 1. Pneumonia, CHF exacerbation. COMPLICATIONS/CHIEF COMPLAINT: Afib,Esophageal Cancer,Hypothyroidism, Pulmonary hypertension HISTORY OF PRESENT ILLNESS: 74-year-old female with past medical history of atrial fibrillation, pulmonary hypertension, esophageal cancer, hypothyroidism, was admitted for pneumonia and CHF exacerbation. Patient was treated with IV Lasix and Zosyn, with significant improvement in cough and dyspnea during her hospitalization. Patient initially required increased oxygen from her baseline of 3 L, currently she is back to her baseline home O2. Patient responded well to IV Lasix, switch to her home dose of oral Lasix yesterday, continues to go urine output. Patient was initially treated with Zosyn, followed by Levaquin, clinically improved. Patient is seen with an elevated clinically stable for discharge with outpatient follow-up with her social service liaison, network operations lead and PCP. HOSPITAL COURSE: As above. DISCHARGE MEDICATIONS: Please see below. ALLERGIES: Please see below. PHYSICAL EXAMINATION: VITAL SIGNS: Please see below. GENERAL: No distress HEENT: Normocephalic, atraumatic, moist mucous membranes NECK: Supple CARDIOVASCULAR EXAMINATION: S1, S2, no murmurs RESPIRATORY EXAMINATION: scattered rhonchi appreciated, diminished in the bases, no wheezing ABDOMINAL EXAMINATION: Soft, nontender, nondistended, positive bowel sounds EXTREMITIES: Range of motion intact SKIN: No rash NEUROLOGICAL EXAMINATION: Alert and oriented 3, no focal deficits PSYCHIATRIC EXAMINATION: Calm and cooperative LABORATORY DATA: Please see below. IMAGING: CT consistent with fluid overload and right lower lobe infiltrate PROGNOSIS: Guarded ACTIVITY: As tolerated. DIET: Cardiac with fluid restriction of 1500 miles per day DISCHARGE PLAN: Patient will follow-up with her network operations lead, social service liaison and PCP in 1-2 weeks DISPOSITION: Home with services. DISCHARGE INSTRUCTIONS: 1. As above. DISCHARGE CONDITION: Stable. TIME SPENT ON DISCHARGE: Greater than 36 minutes. Vital Signs/I&Os Vital Signs Date Time Temp Pulse Resp B/P (MAP) Pulse Ox O2 Delivery O2 Flow Rate FiO2 06/25/19 06:00 99.9 92 16 98/60 (73) 92 Nasal Cannula 3.0 06/20/19 21:10 31 I&O- Last 24 Hours up to 6 AM 06/25/19 06:00 Intake Total 655 ml Output Total 1100 ml Balance -445 ml Laboratory Data Labs 24H Laboratory Tests 2 06/25/19 05:57: Nucleated Red Blood Cells % (auto) 0.0, Anion Gap 8, Glomerular Filtration Rate 32.5L, Calcium Level 10.3#H, Phosphorus Level 4.6#, Magnesium Level 2.4 CBC/BMP Laboratory Tests 06/25/19 05:57 Microbiology Microbiology 06/20/19 Gram Stain - Final, Complete 06/20/19 Sputum Culture - Final, Complete Yeast Like Organism Mold Like Organism 06/20/19 Respiratory Virus Panel (PCR) ([facility]) - Final, Complete 06/20/19 Blood Culture - Preliminary, Resulted No Growth after 72 hours. All specime... 06/20/19 Blood Culture - Preliminary, Resulted No Growth after 72 hours. All specime... Discharge Medications Scheduled Apixaban (Eliquis) 5 Mg Tablet, 5 MG PO BID, (Reported) Cholecalciferol (Vitamin D3) (Vitamin D3) 5,000 Unit Capsule, 5,000 UNIT PO DAILY, (Reported) Cyanocobalamin (Vitamin B-12) (Vitamin B12) 2,500 Mcg Tablet, 1,000 TAB PO DAILY, (Reported) Ferrous Sulfate (Iron) 325 Mg Tablet, 325 MG PO QWEEK, (Reported) MONDAYS Fluticasone/Umeclidin/Vilanter (Trelegy Ellipta 100-62.5-25) 1 Each Blst.w.dev, 1 PUFF INH DAILY, (Reported) Furosemide (Furosemide) 20 Mg Tablet, 60 MG PO DAILY, (Reported) Ipratropium Atco (Ipratropium Atco) 30 Ml [place], 2 SPRAY NARES BID, (Reported) Levothyroxine Sodium (Levothyroxine Sodium) 75 Mcg Tablet, 75 MCG PO DAILY, (Reported) Macitentan (Opsumit) 10 Mg Tablet, 10 MG PO DAILY, (Reported) Metoclopramide HCl (Metoclopramide HCl) 10 Mg Tablet, 10 MG PO TID, (Reported) Pantoprazole Sodium (Pantoprazole Sodium) 40 Mg Tablet.dr, 40 MG PO DAILY, (Reported) Sennosides (Senna Lax) 8.6 Mg Tablet, 2 TAB PO QHS, (Reported) Spironolactone (Spironolactone) 25 Mg Tablet, 25 MG PO DAILY, (Reported) Vitamin B Complex (Vitamin B Complex) 1 Each Tablet, 1 TAB PO DAILY, (Reported) Scheduled PRN Albuterol Sulf (Albuterol Sulfate) 2.5 Mg/3 Ml Vial.neb, 2.5 MG INH TID PRN for SHORTNESS OF BREATH, (Reported) Albuterol Sulfate (Proair Hfa) 8.5 Gm Hfa.aer.ad, 2 PUFF INH Q4H PRN for SOB/WHEEZING, (Reported) Allergies Coded Allergies: No Known Allergies (Unverified , 06/20/19) DIOR WALL MD Jun 25, 2019 12:15
== END 2019-06-25 14:15 | disposition home health service (06) | DRG 291 ==
LOC: M ED 13:10 → M ED INP 16:31 → M MSPAV 21:10
PROVIDERS: ADMIT Internal Medicine; ATTEND Internal Medicine
DX: I11.0 Hypertensive heart disease with heart failure (principal); J18.9 Pneumonia, unspecified organism; I50.9 Heart failure, unspecified; I48.91 Unspecified atrial fibrillation; I27.20 Pulmonary hypertension, unspecified; E03.9 Hypothyroidism, unspecified; Z79.899 Other long term (current) drug therapy; Z79.01 Long term (current) use of anticoagulants; Z99.81 Dependence on supplemental oxygen; Z85.01 Personal history of malignant neoplasm of esophagus; Z87.891 Personal history of nicotine dependence